=== PATIENT | male | born 1955 | race Caucasian/White ===

== ENCOUNTER 2023-08-23 20:27 | Inpatient (IN) | payer MEDICAID, OTHER ==
[~2023-08-23] VITALS: Ht 172.7 cm; Wt 70.8 kg
[2023-08-23 20:44] VITALS: PULSE 59; RESP 13; O2SAT 98
[2023-08-23 21:44] LABS: Basophils # (auto) 0.1 10 ^3/uL (0-0.2); Basophils % (auto) 0.7 % (0.0-2.0); Eosinophils # (auto) 0.1 10 ^3/uL (0-0.8); Eosinophils % (auto) 0.7 % (0.0-7.0); Hematocrit 26.8 % (41.0-53.0); Lymphocytes # (auto) 0.5 10 ^3/uL (0.4-5.4); Lymphocytes % (auto) 6.5 % (10.0-50.0); Mean Corpuscular Hemoglobin 28.9 pg (28.0-32.0); Mean Corpuscular Hgb Conc. 33.5 g/dL (32.0-36.0); Mean Corpuscular Volume 86.2 fL (80.0-100.0); Monocytes # (auto) 0.5 10 ^3/uL (0-1.3); Monocytes % (auto) 7.7 % (0.0-12.0); Neutrophils # (auto) 6.1 10 ^3/uL (1.6-8.6); Neutrophils % (auto) 84.4 % (37.0-80.0); Red Blood Cells 3.11 10^6/uL (4.5-5.90); Red Cell Distribution Width 15.2 % (11.8-14.3); White Blood Cell 7.2 10^3/uL (4.4-10.8)
[2023-08-23 21:54] LABS: Albumin 3.2 g/dL (3.2-4.8); Alkaline Phosphatase 58 U/L (46-116); Anion Gap 8 (5-15); Aspartate Aminotransferase 21 U/L (13-40); BUN/Creatinine Ratio 22.2 (10.0-20.0); Bilirubin, Total 0.8 mg/dL (0.2-1.0); Blood Urea Nitrogen 22 mg/dL (9-23); Calcium 8.7 mg/dL (8.7-10.4); Carbon Dioxide 24 mmol/L (20-30); Chloride 105 mmol/L (98-107); Creatine Kinase IFCC 812 U/L (46-171); Glucose 97 mg/dL (74-106); Potassium 3.1 mmol/L (3.5-5.1); Sodium 137 mmol/L (136-145)
[2023-08-23 21:55] LABS: Alanine Aminotransferase < 9 U/L (7-40)
[2023-08-23] MEDS: SODIUM CHLORIDE 0.9% 1,000 ML IV ONE ×2 (22:21→23:52)
[2023-08-23] MEDS: POTASSIUM CHL 20 Meq TABLET PO ONE (23:50)
[2023-08-24 07:53] VITALS: PULSE 63; RESP 16; O2SAT 63
[2023-08-24 09:15] LABS: Urine Bacteria None Seen /hpf (None Seen)
[2023-08-24 09:33] LABS: Urine Blood Negative /uL (Negative); Urine Clarity Clear (Clear); Urine Color Yellow (Yellow); Urine Mucus FEW (None Seen); Urine Protein, UAD TRACE (Negative); Urine Specific Gravity 1.025 (1.001-1.035); Urine Urobilinogen 8 mg/dL (Negative); Urine WBC 4 /hpf (0 - 3)
[2023-08-24] MEDS ORDERED: NITROGLYCERIN 0.4 MG SL TAB SL PRN (11:00)
[2023-08-24] MEDS ORDERED: DOCUSATE SOD 100 MG CAP PO PRN (11:00)
[2023-08-24] MEDS ORDERED: TEMAZEPAM 15 MG CAP PO PRN (11:00)
[2023-08-24] MEDS ORDERED: MORPHINE SULFATE INJ 2 MG/ml SYRG IV PRN ×2 (11:00)
[2023-08-24] MEDS ORDERED: ONDANSETRON HCL 4 MG/2 ML VIAL IV PRN (11:00)
[2023-08-24] MEDS: SODIUM CHLORIDE 0.9% 1,000 ML IV SCH (11:17)
[2023-08-24 12:09] LABS: Magnesium 1.8 mg/dL (1.6-2.6)
[2023-08-24 12:10] LABS: Phosphorus 1.1 mg/dL (2.4-5.1)
[2023-08-24 12:25] LABS: % Iron Saturation 19.8 % (20-55)
[2023-08-24 12:48] LABS: Ferritin 145.7 ng/mL (22-322)
[2023-08-24] MEDS ORDERED: LORazepam 2MG/ML-1ML VIAL IV PRN (15:00)
[2023-08-24 17:00] VITALS: BP 115/66; PULSE 50; RESP 20; TEMP 97.6; O2SAT 100
[2023-08-24] MEDS: MAGNESIUM SULFATE 1GM/100ML 100 ML IV ONE (17:00)
[2023-08-24 17:01] VITALS: BP 115/66; PULSE 50; RESP 20; TEMP 97.6; O2SAT 100
[2023-08-24 17:11] LABS: Amphetamine Screen, Urine Neg (NEGATIVE)
[2023-08-24 17:12] LABS: Barbiturate Scree,Urine Neg (NEGATIVE); Benzodiazephine Screen, Urine Neg (NEGATIVE); Cannabinoid Screen, Urine Neg (NEGATIVE); Cocaine Screen, Urine Neg (NEGATIVE); Opiate Scree,Urine Neg (NEGATIVE); Phencyclidine Screen, Urine Neg (NEGATIVE)
[2023-08-24 17:23] LABS: Basophils # (auto) 0 10 ^3/uL (0-0.2); Basophils % (auto) 0.9 % (0.0-2.0); Eosinophils # (auto) 0.1 10 ^3/uL (0-0.8); Hematocrit 30.1 % (41.0-53.0); Hemoglobin 9.8 g/dL (13.5-17.5); Lymphocytes # (auto) 0.6 10 ^3/uL (0.4-5.4); Lymphocytes % (auto) 10.3 % (10.0-50.0); Mean Corpuscular Hemoglobin 28.4 pg (28.0-32.0); Mean Corpuscular Hgb Conc. 32.7 g/dL (32.0-36.0); Monocytes # (auto) 0.3 10 ^3/uL (0-1.3); Neutrophils # (auto) 4.8 10 ^3/uL (1.6-8.6); Neutrophils % (auto) 81.8 % (37.0-80.0); Nucleated Red Blood Cells % 0.1 %; Red Blood Cells 3.46 10^6/uL (4.5-5.90); Red Cell Distribution Width 15.1 % (11.8-14.3); White Blood Cell 5.9 10^3/uL (4.4-10.8)
[2023-08-24 17:32] LABS: Chloride 108 mmol/L (98-107); Potassium 3.2 mmol/L (3.5-5.1); Sodium 138 mmol/L (136-145)
[2023-08-24 17:33] LABS: Anion Gap 5 (5-15); Calcium 8.3 mg/dL (8.5-10.1); Carbon Dioxide 25 mmol/L (20-30)
[2023-08-24 17:38] LABS: BUN/Creatinine Ratio 21.3 (10.0-20.0); Blood Urea Nitrogen 19 mg/dL (9-23); Glucose 140 mg/dL (74-106); Triglycerides 83 mg/dL (< 150)
[2023-08-24 17:39] LABS: LDL Cholesterol 46 mg/dL (< 100)
[2023-08-24 17:40] LABS: Cholesterol 98 mg/dL (< 200); HDL Cholesterol 26 mg/dL (40-59)
[2023-08-24 20:00] VITALS: PULSE 47; RESP 18; O2SAT 100
[2023-08-24 21:00] VITALS: BP 119/68; PULSE 51; RESP 18; TEMP 98.1; O2SAT 100
[2023-08-24] MEDS ORDERED: D5W/SOD CHLO 0.9% 1,000 ML IV SCH (22:15)
[2023-08-25] VITALS (8 sets, daily range): BP systolic 118–155; BP diastolic 70–91; PULSE 47–67; RESP 16–20; TEMP 98–98.8; O2SAT 94–100
[2023-08-25 06:18] LABS: Basophils # (auto) 0 10 ^3/uL (0-0.2); Basophils % (auto) 0.8 % (0.0-2.0); Eosinophils # (auto) 0.2 10 ^3/uL (0-0.8); Eosinophils % (auto) 3.1 % (0.0-7.0); Hematocrit 26.3 % (41.0-53.0); Hemoglobin 8.7 g/dL (13.5-17.5); Lymphocytes # (auto) 0.7 10 ^3/uL (0.4-5.4); Mean Corpuscular Hemoglobin 28.8 pg (28.0-32.0); Mean Corpuscular Volume 87.3 fL (80.0-100.0); Monocytes # (auto) 0.3 10 ^3/uL (0-1.3); Monocytes % (auto) 6.6 % (0.0-12.0); Neutrophils # (auto) 3.9 10 ^3/uL (1.6-8.6); Neutrophils % (auto) 76.5 % (37.0-80.0); Red Blood Cells 3.02 10^6/uL (4.5-5.90); Red Cell Distribution Width 15.2 % (11.8-14.3); White Blood Cell 5.1 10^3/uL (4.4-10.8)
[2023-08-25 06:26] LABS: Albumin 2.7 g/dL (3.2-4.8); Alkaline Phosphatase 54 U/L (46-116); Anion Gap 5 (5-15); Aspartate Aminotransferase 19 U/L (13-40); BUN/Creatinine Ratio 17.8 (10.0-20.0); Bilirubin, Total 0.3 mg/dL (0.2-1.0); Blood Urea Nitrogen 13 mg/dL (9-23); Calcium 7.7 mg/dL (8.5-10.1); Carbon Dioxide 23 mmol/L (20-30); Chloride 111 mmol/L (98-107); Glucose 82 mg/dL (74-106); Magnesium 1.9 mg/dL (1.6-2.6); Potassium 3.1 mmol/L (3.5-5.1); Sodium 139 mmol/L (136-145)
[2023-08-25 06:29] LABS: Alanine Aminotransferase < 9 U/L (7-40)
[2023-08-25] MEDS: POTASSIUM EFFERVESENT TAB 25 MEQ PO ONE (10:32)
[2023-08-25 13:14] LABS: Folate (Folic Acid) 12.65 ng/mL (>5.38)
[2023-08-25] MEDS: SODIUM CHLORIDE 0.9% 1,000 ML IV SCH (13:45)
[2023-08-25 14:44] LABS: Free T4 (Free Thyroxine) 0.61 ng/dL (0.89-1.76)
[2023-08-25 14:45] LABS: Free T3 1.32 pg/mL (2.3-4.2)
[2023-08-25] MEDS ORDERED: LEVO25TA6 PO (18:20)
[2023-08-26] VITALS (7 sets, daily range): BP systolic 121–151; BP diastolic 74–91; PULSE 50–58; RESP 18–20; TEMP 97.1–98.7; O2SAT 96–100
== END 2023-08-26 19:10 | disposition home or self-care (01) | DRG 815 ==
LOC: ER 20:27 → EDBD 20:27 → ER 08-24 11:06 → TELE 08-24 11:06 → TELE-WESTW 08-24 16:52
PROVIDERS: ADMIT Internal Medicine Pulmonary Disease; ATTEND Internal Medicine Pulmonary Disease
DX: T67.01XA Heatstroke and sunstroke, initial encounter (principal); M62.82 Rhabdomyolysis; E83.39 Other disorders of phosphorus metabolism; I95.9 Hypotension, unspecified; D64.9 Anemia, unspecified; E03.9 Hypothyroidism, unspecified; S29.9XXA Unspecified injury of thorax, initial encounter; E86.0 Dehydration; E87.6 Hypokalemia; J98.11 Atelectasis; W18.39XA Other fall on same level, initial encounter; F17.200 Nicotine dependence, unspecified, uncomplicated; Z59.02 Unsheltered homelessness; Z82.49 Family history of ischemic heart disease and other diseases of the circulatory system; X30.XXXA Exposure to excessive natural heat, initial encounter; Y93.89 Activity, other specified; Y92.89 Other specified places as the place of occurrence of the external cause; Y99.8 Other external cause status
CPT/HCPCS: 36415; 70450; 70551; 71045; 80048; 80053; 80061; 80307; 81001; 82550; 82607; 82728; 82746; 83036; 83540; 83550; 83615; 83735; 83880; 84100; 84439; 84443; 84481; 84484; 85025; 85045; 86850; 86900; 86901; 93005; 93306; 93886; 95819; 97110; 97116; 97163; G0378